=== PATIENT | male | born 1955 | race Caucasian/White ===

== ENCOUNTER 2018-06-13 12:53 | Emergency (ER) | payer OTHER ==
[2018-06-13] MEDS ORDERED: NS 1,000 ML IV ONE (13:16)
--- NOTE | 2018-06-13 13:25 | EDPHY ---
H & P Stated Complaint: dark stools Time Seen by Provider: 06/13/18 13:16 HPI/ROS: CHIEF COMPLAINT: Tarry stools HISTORY OF PRESENT ILLNESS: The patient is referred to the emergency department for evaluation of tarry stools which have been occurring for the past several days. The patient has been having intermittent bouts of diarrhea and constipation. The patient does report that he is a daily ibuprofen user. The patient denies any prior history of GI bleed. The patient denies any nausea or vomiting. He denies any acute abdominal pain. The patient was seen by his primary care provider noted to have heme-positive stool and referred to the ED for further evaluation. The patient has been taking Pepto-Bismol for the past several days. REVIEW OF SYSTEMS: A comprehensive 10 point review of systems is otherwise negative aside from elements mentioned in the history of present illness. Source: Patient Exam Limitations: No limitations - Personal History Current Tetanus/Diphtheria Vaccine: Yes Current Tetanus Diphtheria and Acellular Pertussis (TDAP): Yes - Medical/Surgical History Hx Asthma: No Hx Chronic Respiratory Disease: No Hx Diabetes: No Hx Cardiac Disease: No Hx Renal Disease: No Hx Cirrhosis: No Hx Alcoholism: No Hx HIV/AIDS: No Hx Splenectomy or Spleen Trauma: No Other PMH: Hyperlipidemia, GERD, - Social History Smoking Status: Never smoked - Physical Exam Exam: General Appearance: Alert, no distress Eyes: Pupils equal and round no pallor or injection ENT, Mouth: Mucous membranes moist Respiratory: There are no retractions, lungs are clear to auscultation Cardiovascular: Regular rate and rhythm Gastrointestinal: Minimal epigastric tenderness to palpation, normal bowel sounds, no peritoneal signs Neurological: 5/5 strength noted all 4 extremities Skin: Warm and dry, no rashes Musculoskeletal: Neck is supple nontender Extremities: symmetrical, full range of motion Psychiatric: Patient is oriented X 3, there is no agitation Constitutional: Initial Vital Signs Temperature (C) 37 C 06/13/18 13:06 Heart Rate 73 06/13/18 13:06 Respiratory Rate 16 06/13/18 13:06 Blood Pressure 148/72 H 06/13/18 13:06 O2 Sat (%) 97 06/13/18 13:06 O2 Delivery Mode Room Air Allergies/Adverse Reactions: No Known Allergies Allergy (Unverified 06/13/18 13:04) Home Medications: Medication Instructions Recorded Acetaminophen 06/13/18 Atorvastatin Calcium 06/13/18 Ibuprofen 06/13/18 Lysine 06/13/18 Melatonin 06/13/18 Naproxen 06/13/18 Omeprazole 06/13/18 Ranitidine HCl 06/13/18 Viagra 06/13/18 Vitamin D3 06/13/18 Medical Decision Making ED Course/Re-evaluation: Patient presents to the ED from urgent care secondary to concerns of a GI bleed. While the patient has been having dark black stools he is been on Pepto- Bismol for the past 4 days. His stool card is heme-negative in the emergency department. His laboratory studies are unremarkable. The patient's abdominal examination is benign. I have advised the patient to stop taking ibuprofen. He should begin taking ranitidine 150 mg twice a day for presumed gastritis. The patient is instructed to return to the ED for severe abdominal pain, the development of ongoing tarry stools in the absence of Pepto-Bismol use or should he develop charlene blood. Differential Diagnosis: Differential diagnosis considered includes gastritis, upper GI bleed, lower GI bleed, pancreatitis - Data Points Laboratory Results: Laboratory Results 06/13/18 13:20 06/13/18 13:20 06/13/18 06/13/18 06/13/18 14:20 13:20 13:20 WBC RBC Hgb Hct MCV MCH MCHC RDW Plt Count MPV Neut % (Auto) Lymph % (Auto) [place] % (Auto) Eos % (Auto) Baso % (Auto) Nucleat RBC Rel Count Absolute Neuts (auto) Absolute Lymphs (auto) Absolute Monos (auto) Absolute Eos (auto) Absolute Basos (auto) Absolute Nucleated RBC Immature Gran % Immature Gran # PT 13.0 SEC SEC (12.0-15.0) INR 1.02 (0.83-1.16) APTT 28.3 SEC SEC (23.0-38.0) Sodium 138 mEq/L mEq/L (135-145) Potassium 4.7 mEq/L mEq/L (3.5-5.2) Chloride 107 mEq/L mEq/L (97-110) Carbon Dioxide 22 mEq/l mEq/l (22-31) Anion Gap 9 mEq/L mEq/L (6-14) BUN 24 mg/dL H mg/dL (7-23) Creatinine 0.8 mg/dL mg/dL (0.7-1.3) Estimated GFR > 60 Glucose 94 mg/dL mg/dL (70-100) Calcium 9.6 mg/dL mg/dL (8.5-10.4) Stool Occult Bld Scrn NEGATIVE (NEGATIVE) 06/13/18 13:20 WBC 5.46 10^3/uL 10^3/uL (3.80-9.50) RBC 5.34 10^6/uL 10^6/uL (4.40-6.38) Hgb 16.2 g/dL g/dL (13.7-17.5) Hct 47.5 % % (40.0-51.0) MCV 89.0 fL fL (81.5-99.8) MCH 30.3 pg pg (27.9-34.1) MCHC 34.1 g/dL g/dL (32.4-36.7) RDW 12.8 % % (11.5-15.2) Plt Count 229 10^3/uL 10^3/uL (150-400) MPV 10.4 fL fL (8.7-11.7) Neut % (Auto) 60.9 % % (39.3-74.2) Lymph % (Auto) 26.9 % % (15.0-45.0) [place] % (Auto) 9.7 % % (4.5-13.0) Eos % (Auto) 1.6 % % (0.6-7.6) Baso % (Auto) 0.7 % % (0.3-1.7) Nucleat RBC Rel Count 0.0 % % (0.0-0.2) Absolute Neuts (auto) 3.32 10^3/uL 10^3/uL (1.70-6.50) Absolute Lymphs (auto) 1.47 10^3/uL 10^3/uL (1.00-3.00) Absolute Monos (auto) 0.53 10^3/uL 10^3/uL (0.30-0.80) Absolute Eos (auto) 0.09 10^3/uL 10^3/uL (0.03-0.40) Absolute Basos (auto) 0.04 10^3/uL 10^3/uL (0.02-0.10) Absolute Nucleated RBC 0.00 10^3/uL 10^3/uL (0-0.01) Immature Gran % 0.2 % % (0.0-1.1) Immature Gran # 0.01 10^3/uL 10^3/uL (0.00-0.10) PT INR APTT Sodium Potassium Chloride Carbon Dioxide Anion Gap BUN Creatinine Estimated GFR Glucose Calcium Stool Occult Bld Scrn Medications Given: Discontinued Medications Sodium Chloride (Ns) 1,000 mls @ 0 mls/hr IV EDNOW ONE; Wide Open PRN Reason: Protocol Stop: 06/13/18 13:17 Last Admin: 06/13/18 13:24 Dose: 1,000 mls Departure - Departure Disposition: Home, Routine, Self-Care Clinical Impression: Gastritis Condition: Good Instructions: Gastritis (ED) Additional Instructions: 1. You have no evidence of active GI bleeding today. 2. Your stool is black in color likely secondary to Pepto-Bismol. I recommend stopping this medication. 3. Please stop taking ibuprofen as it likely is causing you some GI distress. 4. Use Maalox as needed for discomfort. You may also take Zantac 150 mg twice a day. 5. Return to the ED for severe abdominal pain, bright red blood per rectum, ongoing tarry stools in the absence Pepto-Bismol consumption Referrals: Erin Abreu MD [Primary Care Provider] - As per Instructions
[2018-06-13 13:30] LABS: PLATELET COUNT 229 10^3/uL (150-400)
[2018-06-13 13:42] LABS: INR 1.02 (0.83-1.16)
[2018-06-13 14:46] VITALS: BP 133/76
== END 2018-06-13 14:46 | disposition home or self-care (01) ==
DX: K29.70 Gastritis, unspecified, without bleeding (principal); K21.9 Gastro-esophageal reflux disease without esophagitis; E78.5 Hyperlipidemia, unspecified; E86.9 Volume depletion, unspecified

== ENCOUNTER 2018-06-23 06:32 | Emergency (ER) | payer OTHER ==
--- NOTE | 2018-06-23 06:59 | EDPHY ---
H & P Stated Complaint: unable to urinate x 7 hours Time Seen by Provider: 06/23/18 06:58 HPI/ROS: CHIEF COMPLAINT: Urinary retention HISTORY OF PRESENT ILLNESS: The patient presents the emergency department with complaints of acute urinary retention. He has a history of BPH. He denies any fever, vomiting or flank pain. The patient reports moderate suprapubic discomfort. REVIEW OF SYSTEMS: A comprehensive 10 point review of systems is otherwise negative aside from elements mentioned in the history of present illness. Source: Patient Exam Limitations: No limitations - Personal History Current Tetanus Diphtheria and Acellular Pertussis (TDAP): Yes - Medical/Surgical History Hx Asthma: No Hx Chronic Respiratory Disease: No Hx Diabetes: No Hx Cardiac Disease: No Hx Renal Disease: No Hx Cirrhosis: No Hx Alcoholism: No Hx HIV/AIDS: No Hx Splenectomy or Spleen Trauma: No Other PMH: Hyperlipidemia, GERD, enlarged prostate - Social History Smoking Status: Never smoked - Physical Exam Exam: General Appearance: Alert, no distress Eyes: Pupils equal and round no pallor or injection ENT, Mouth: Mucous membranes moist Respiratory: There are no retractions, lungs are clear to auscultation Cardiovascular: Regular rate and rhythm Gastrointestinal: Suprapubic tenderness Constitutional: Initial Vital Signs Temperature (C) 36.8 C 06/23/18 06:36 Heart Rate 99 06/23/18 06:36 Respiratory Rate 20 06/23/18 06:36 Blood Pressure 156/109 H 06/23/18 06:36 O2 Sat (%) 94 06/23/18 06:36 Allergies/Adverse Reactions: No Known Allergies Allergy (Unverified 06/23/18 06:36) Home Medications: Medication Instructions Recorded Acetaminophen 06/13/18 Atorvastatin Calcium 06/13/18 Ibuprofen 06/13/18 Lysine 06/13/18 Melatonin 06/13/18 Naproxen 06/13/18 Omeprazole 06/13/18 Ranitidine HCl 06/13/18 Viagra 06/13/18 Vitamin D3 06/13/18 Tamsulosin HCl [Flomax] 0.4 mg PO DAILY PRN #30 cap 06/23/18 Medical Decision Making ED Course/Re-evaluation: Bladder scan performed in the emergency department demonstrates a postvoid residual of 1000 mL. A Madrigal catheter was placed in the ED. Urinalysis demonstrates no evidence of infection. The patient was given Flomax. He will leave his Madrigal catheter in for the next 4-5 days. He will follow up with Urology. He is discharged home with customary aftercare instructions and return precautions. - Data Points Laboratory Results: 06/23/18 06:42 Urine Color PALE YELLOW Urine Appearance CLEAR Urine pH 5.0 (5.0-7.5) Ur Specific [place] 1.005 (1.002-1.030) Urine Protein NEGATIVE (NEGATIVE) Urine Ketones NEGATIVE (NEGATIVE) Urine Blood 2+ H (NEGATIVE) Urine Nitrate NEGATIVE (NEGATIVE) Urine Bilirubin NEGATIVE (NEGATIVE) Urine Urobilinogen NEGATIVE EU EU (0.2-1.0) Ur Leukocyte Esterase NEGATIVE (NEGATIVE) Urine RBC 10-15 /hpf H /hpf (0-3) Urine WBC 1-3 /hpf /hpf (0-3) Ur Epithelial Cells TRACE /lpf /lpf (NONE-1+) Urine Bacteria TRACE /hpf H /hpf (NONE SEEN) Urine Mucus TRACE /lpf /lpf (NONE-1+) Urine Glucose NEGATIVE (NEGATIVE) Departure - Departure Disposition: Home, Routine, Self-Care Clinical Impression: Urinary retention Condition: Good Instructions: Urinary Retention in Men (ED) Additional Instructions: 1. Please begin Flomax as prescribed. 2. Return to the ED for any pain, fever, vomiting or other concerns. 3. I do recommend following up with Urology. You have been given the contact number of our on-call urologist. Please contact their office to schedule a follow-up visit. 4. I recommend removal of the Madrigal catheter in 4-7 days. Referrals: Erin Abreu MD [Primary Care Provider] - As per Instructions Prescriptions: Tamsulosin HCl [Flomax] 0.4 mg PO DAILY PRN #30 cap PRN Reason: for enlarged prostate
[2018-06-23] MEDS ORDERED: TAMSULOSIN HCL 0.4 MG CAP PO ONE (07:27)
[2018-06-23 08:01] VITALS: BP 131/85
== END 2018-06-23 08:00 | disposition home or self-care (01) ==
DX: R33.9 Retention of urine, unspecified (principal); E78.5 Hyperlipidemia, unspecified; N40.1 Benign prostatic hyperplasia with lower urinary tract symptoms